=== PATIENT | male | born 1985 | race African-American/Black ===

== ENCOUNTER 2019-03-12 20:22 | Emergency (ER) | payer OTHER ==
[~2019-03-12] VITALS: Ht 175.3 cm; Wt 108.9 kg
[2019-03-12 20:22] VITALS: BP 158/97
[~2019-03-12 20:22] MED LIST: NKM
[2019-03-12] MEDS ORDERED: Ketorolac 30mg Inj IV ONE (20:30)
[2019-03-12] MEDS ORDERED: Ipratropium 0.02% Inh Soln 2.5ml UD HHN ONE (20:45)
[2019-03-12] MEDS ORDERED: Albuterol ud Inhalation HHN ONE (20:45)
--- NOTE | 2019-03-12 20:50 | NUR ---
ED Nurse Note: RT currently at bedside.
[2019-03-12] MEDS ORDERED: ALBUTEROL SULF8.5 GM INH (20:51)
--- NOTE | 2019-03-12 20:51 | Emergency Room Report ---
History of Present Illness General Chief Complaint: Chest Pain Source: Patient Present Illness HPI 34-year-old male presents with chest tightness after utilizing marijuana, patient felt a slight discomfort, no dyspnea on exertion no shortness of breath unknown alleviating factors, aggravated by smoking marijuana, no nausea no vomiting, severity was mild, symptoms lasted minutes, patient presents for evaluation. Allergies: Coded Allergies: No Known Allergies (Unverified , 11/01/14) Patient History Past Medical History: see triage record Social History: Reports: drug use - Smoking marijuana Reviewed Nursing Documentation: PMH: Agreed; PSxH: Agreed Nursing Documentation-PMH Past Medical History: No History, Except For Review of Systems All Other Systems: negative except mentioned in HPI Physical Exam Vital Signs Date Time Temp Pulse Resp B/P (MAP) Pulse Ox O2 Delivery O2 Flow Rate FiO2 03/12/19 20:19 98.2 88 18 158/97 (117) 98 Room Air General Appearance: well appearing, no apparent distress Head: normocephalic, atraumatic ENT: hearing grossly normal, normal voice Neck: full range of motion, supple Respiratory: no respiratory distress, speaking full sentences Cardiovascular #1: regular rate, rhythm, no edema, no gallop Neurologic: alert, normal gait Psychiatric: anxious Skin: no rash Medical Decision Making Diagnostic Impression: Primary Impression: Chest pain Qualified Codes: R07.9 - Chest pain, unspecified Additional Impression: Marijuana use ER Course 34-year-old male presents with chest pain after marijuana use, differential diagnosis includes ACS, smoke inhalation injury, pneumonitis Chest x-ray negative, EKG negative Patient felt better after Toradol administration and breathing treatments Counseled patient not to utilize marijuana anymore disposition home with return precautions EKG Diagnostic Results EKG Time: 20:28 EP Interpretation: NSR, rate 94, QTc 452, no acute ST elevations normal axis Rhythm Strip Diag. Results Rhythm Strip Time: 20:50 EP Interpretation: yes Rate: 88 Rhythm: NSR, no PVC's, no ectopy Chest X-Ray Diagnostic Results Chest X-Ray Diagnostic Results : Chest X-Ray Ordered: Yes # of Views/Limited/Complete: 1 View Indication: Chest Pain EP Interpretation: Yes Interpretation: no consolidation, no effusion, no pneumothorax, no acute cardiopulmonary disease Impression: No acute disease Electronically Signed by: Noe Vargas MD Last Vital Signs Date Time Temp Pulse Resp B/P (MAP) Pulse Ox O2 Delivery O2 Flow Rate FiO2 03/12/19 20:19 98.2 88 18 158/97 (117) 98 Room Air Disposition: HOME, SELF-CARE Condition: Stable Scripts Albuterol Sulfate* (ALBUTEROL SULFATE MDI*) 8.5 Gm Hfa.aer.ad 2 PUFF INH Q4H PRN for cough/wheezing, #1 EA 0 Refills Prov: Noe Vargas MD 03/12/19 Referrals: [facility]. [facility] Patient Instructions: Cannabis Use Disorder, Nonspecific Chest Pain Additional Instructions: The patient was provided with discharge instructions, notified to follow-up with a primary care doctor and or specialist in the next 24-48 hours, and to return to the ED if they have worsening of their symptoms. Please note that this report is being documented using DRAGON technology. This can lead to erroneous entry secondary to incorrect interpretation by the dictating instrument. Noe Vargas MD Mar 12, 2019 20:51
--- NOTE | 2019-03-12 20:52 | NUR ---
ED Nurse Note: Patient brought in by ambulance (RA 68) with complaints acute onset of chest pain after marijuana use. Patient appears calm with slight paranoia. No s/s of acute distress, ambulatory with steady gait, breathing even and unlabored. Will continue to monitor.
--- NOTE | 2019-03-12 20:53 | Diagnostic Imaging Report ---
EXAM: XR Chest, 1 View CLINICAL HISTORY: COUGH TECHNIQUE: Frontal view of the chest. COMPARISON: No relevant prior studies available. FINDINGS: Lungs: Reduced lung volumes. No confluent consolidation. Pleural space: Unremarkable. No pneumothorax. Heart: Accentuation of cardiac silhouette Mediastinum: Unremarkable. Bones joints: No acute fracture. IMPRESSION: Reduced lung volumes. No confluent consolidation.
--- NOTE | 2019-03-12 21:10 | NUR ---
ED Nurse Note: Patient cleared for discharge by LEIGHA. Patient is ambulatory with steady gait, A&Ox4. Ptaient tolerated breathing treatment and medication administration well. Patient ID band removed, IV removed, Patient departed with all belongings to Uber back to his friend's house.
[2019-03-12 21:13] VITALS: BP 158/97
--- NOTE | 2019-03-14 17:26 | Cardiology Report ---
APPROVED REPORT EKG Measurement Heart [id number] Normal sinus rhythm Normal ECG
== END 2019-03-12 21:13 | disposition home or self-care (01) ==
LOC: EDBD 20:22 → EMR 20:48
DX: R07.9 Chest pain, unspecified (principal); F12.10 Cannabis abuse, uncomplicated
CPT/HCPCS: 71045; 93005; 94640; 94664; 96361; 96374; J1885; Z7502; 99284

== ENCOUNTER 2019-09-23 14:22 | Emergency (ER) | payer OTHER ==
[~2019-09-23] VITALS: Ht 175.3 cm; Wt 108.9 kg
[2019-09-23 14:20] VITALS: BP 135/89
[~2019-09-23 14:22] MED LIST changes: +ALBUTEROL SULF8.5 GM INH
--- NOTE | 2019-09-23 14:24 | NUR ---
ED Nurse Note: pt walked in from his car where he is living due to sore throat since last night. pt aao x4 and ambulatory. skin clean and intact. calm and cooprative. no cardiac or pulmonary distress noted at this time.
--- NOTE | 2019-09-23 14:54 | Emergency Room Report ---
History of Present Illness General Chief Complaint: Sore Throat Source: Patient Present Illness HPI 34 YO Male presents to the ED c/o 5 in severity left sided ST progressive x 2 days. He denies fevers or chills. He reports pain is exacerbated upon swallowing and talking. Patient reports history of tonsillitis in the past. Patient denies changes in his voice. He denies swollen tender lymph nodes. He denies cough, shortness of breath, neck pain/stiffness, headache or photophobia. Patient denies body aches. No other aggravating or relieving factors at this time. Patient reports history of sleep apnea. Allergies: Coded Allergies: No Known Allergies (Unverified , 11/01/14) COVID-19 Screening Contact w/high risk pt: No Recent Travel to affected area: No Experienced COVID-19 symptoms?: No Patient History Past Medical History: see triage record Past Surgical History: none Pertinent Family History: none Immunizations: UTD Reviewed Nursing Documentation: PMH: Agreed; PSxH: Agreed Nursing Documentation-PMH Past Medical History: No Stated History Review of Systems All Other Systems: negative except mentioned in HPI Physical Exam Vital Signs Date Time Temp Pulse Resp B/P (MAP) Pulse Ox O2 Delivery O2 Flow Rate FiO2 09/23/19 14:17 97.5 90 18 135/89 (104) 99 Room Air Sp02 EP Interpretation: reviewed, normal General Appearance: no apparent distress, alert, GCS 15, non-toxic Head: normocephalic, atraumatic Eyes: bilateral eye normal inspection, bilateral eye PERRL ENT: hearing grossly normal, no angioedema, normal voice, TMs + canals normal, uvula midline, moist mucus membranes, tonsillar swelling - Left tonsil. NO exudates Neck: full range of motion, no meningismus, other - no stridor Respiratory: chest non-tender, lungs clear, normal breath sounds, no respiratory distress, no accessory muscle use, no wheezing, speaking full sentences Cardiovascular #1: regular rate, rhythm Musculoskeletal: normal range of motion, gait/station normal, non-tender Neurologic: alert, motor strength/tone normal, oriented x3, sensory intact, responsive, speech normal Psychiatric: judgement/insight normal Skin: normal color, normal inspection Lymphatic: no adenopathy Medical Decision Making PA Attestation Dr. Paige is my supervising Physician whom patient management has been discussed with. Diagnostic Impression: Primary Impression: Acute bacterial tonsillitis ER Course Pt. presents to the ED with s/sx c/w URI in the setting of a local COVID-19 Outbreak. - This PT. was triaged outside the facility in a designated staging area and placed into isolation tent. - Full PPE for airborne/droplet isolation (booties, Gown, doubled nitrile gloves, N95 Mask covered by Surgical mask w. face shield, and hair net) was donned in the designated HCP staging area prior to pt. interaction. Pt. presents to the ED c/o : sore throat, tonsillar swelling, and nasal congestion x 2 days Ddx considered but are not limited to: pharyngitis, strep, ACOUSTICS TEACHER, ludwigs angina, URI Vital signs: are WNL, pt. is afebrile H&PE are most consistent with: pharyngitis presumed strep. ORDERS: None required at this time as the diagnosis is clinical ED INTERVENTIONS: none required at this time. DISCHARGE: At this time pt. is stable for d/c to home. Will provide printed patient care instructions, and any necessary prescriptions. Care plan and follow up instructions have been discussed with the patient prior to discharge. Last Vital Signs Date Time Temp Pulse Resp B/P (MAP) Pulse Ox O2 Delivery O2 Flow Rate FiO2 09/23/19 14:25 97.5 89 18 135/89 (104) 99 Room Air Disposition: HOME, SELF-CARE Condition: Stable Scripts Ibuprofen* (MOTRIN*) 400 Mg Tablet 400 MG ORAL THREE TIMES A DAY, #30 TAB 0 Refills Prov: Kyara Keys 09/23/19 Amoxicillin/Potassium Clav 875-125* (AUGMENTIN 875-125 TABLET*) 1 Each Tablet 1 TAB ORAL TWICE A DAY for 10 Days, #20 TAB Prov: Kyara Keys 09/23/19 Patient Instructions: Sore Throat Additional Instructions: Take medications as directed. Follow up with a Primary Care Provider in 3-5 days, even if your symptoms have resolved. Return sooner to ED if new symptoms occur, or current symptoms become worse. - Please note that this Emergency Department Report was dictated using [employer] technology software, occasionally this can lead to erroneous entry secondary to interpretation by the dictation equipment. Kyara Keys Sep 23, 2019 14:54
[2019-09-23] MEDS ORDERED: IBUPROFEN400 MG ORAL (14:55)
[2019-09-23] MEDS ORDERED: AUGMENTIN 875-1 EAC1 ORAL (14:55)
[2019-09-23 14:57] VITALS: BP 134/75
--- NOTE | 2019-09-23 14:59 | NUR ---
ED Nurse Note: Pt cleared by health care Provider for discharge. DC instructions/prescription was given and explained to pt and verbalized understanding of teachings. All medical deviecs such as ID band removed. Pt is AAO x4, ambulatory and left with all personal belongings.
--- NOTE | 2019-09-23 15:09 | NUR ---
Vanda granger in EDM - 09/23/19 at 1509 by MARGARITO ED Nurse Note: back from x ray/ ct
== END 2019-09-23 15:00 | disposition home or self-care (01) ==
LOC: EDBD 14:22 → EMR 14:48
DX: J03.90 Acute tonsillitis, unspecified (principal); G47.30 Sleep apnea, unspecified
CPT/HCPCS: 99282

== ENCOUNTER 2019-11-17 19:02 | Emergency (ER) | payer OTHER ==
[~2019-11-17] VITALS: Ht 175.3 cm; Wt 113.4 kg
[~2019-11-17 19:02] MED LIST changes: +AUGMENTIN 875-1 EAC1 ORAL; +IBUPROFEN400 MG ORAL
[2019-11-17 19:19] VITALS: BP 150/105
--- NOTE | 2019-11-17 19:19 | NUR ---
ED Nurse Note: pt ambulated into ed from home CO of left upper eye bleed. Pt states he doesn't know when the bleeding began. Pt denies pain or trauma to affected area, denies visual changes. Pt states hx of smoking. Pt aao x 4, ambulatory, skin intact. VSS no ss of distress noted. Awaiting ERMD at bedside.
--- NOTE | 2019-11-17 19:27 | NUR ---
ED Nurse Note: ERMD at bedside
--- NOTE | 2019-11-17 19:33 | Emergency Room Report ---
History of Present Illness General Chief Complaint: Eye Problems Source: Patient Present Illness HPI The patient states that today he noticed blood on the upper aspect of his left eye. He denies eye pain or change in vision. He denies eye trauma. He denies headache. He has no other bruising or bleeding. He has no other complaints. Allergies: Coded Allergies: No Known Allergies (Unverified , 11/01/14) COVID-19 Screening Contact w/high risk pt: No Recent Travel to affected area: No Experienced COVID-19 symptoms?: No COVID-19 Testing performed PLC ENGINEER: No Patient History Past Medical History: none Past Surgical History: none Social History: Reports: smoking; Denies: alcohol use, drug use Reviewed Nursing Documentation: PMH: Agreed; PSxH: Agreed Nursing Documentation-PMH Past Medical History: No Stated History Review of Systems All Other Systems: negative except mentioned in HPI Physical Exam Vital Signs Date Time Temp Pulse Resp B/P (MAP) Pulse Ox O2 Delivery O2 Flow Rate FiO2 11/17/19 19:09 98.2 95 20 150/105 (120) 96 Room Air Sp02 EP Interpretation: reviewed, normal General Appearance: no apparent distress, alert, GCS 15, non-toxic Head: normocephalic, atraumatic Eyes: left eye other - subconjuctival blood upper eye under eyelid.; bilateral eye PERRL ENT: hearing grossly normal, no angioedema, normal voice Neck: normal inspection Respiratory: no respiratory distress, no retraction, no accessory muscle use, speaking full sentences Rectal: deferred Musculoskeletal: back normal, normal range of motion, gait/station normal, non- tender Neurologic: alert, motor strength/tone normal, oriented x3, sensory intact, responsive, speech normal Psychiatric: judgement/insight normal, memory normal, mood/affect normal, no suicidal/homicidal ideation Skin: no rash, normal color Medical Decision Making Diagnostic Impression: Primary Impression: Subconjunctival hematoma ER Course This patient has findings on exam consistent with a conjunctival hemorrhage. There are no other physical exam or history that would make me concerned for an emergency medical condition such as a bleeding disorder or other emergency eye condition. The patient has a classic finding of conjunctival hemorrhage which will self resolve. The patient was reassured. Patient is given return precautions and follow-up instructions. Last Vital Signs Date Time Temp Pulse Resp B/P (MAP) Pulse Ox O2 Delivery O2 Flow Rate FiO2 11/17/19 19:19 98.2 95 20 150/105 96 Room Air Status: improved Disposition: HOME, SELF-CARE Condition: Improved Patient Instructions: Subconjunctival Hemorrhage Teresa Jean DO November 17, 2019 19:33
[2019-11-17 19:35] VITALS: BP 142/94
--- NOTE | 2019-11-17 19:35 | NUR ---
ER DISCHARGE NOTE: Patient is cleared to be discharged home per ERMD, pt is aox4, on room air, with stable vital signs. pt was given dc instructions, pt was able to verbalize understanding, pt id band removed. pt is able to ambulate with steady gait. pt took all belongings.
== END 2019-11-17 19:35 | disposition home or self-care (01) ==
LOC: EMR 19:30
DX: H11.32 Conjunctival hemorrhage, left eye (principal)
CPT/HCPCS: 99282

== ENCOUNTER 2020-03-16 11:30 | Emergency (ER) | payer OTHER ==
[~2020-03-16] VITALS: Ht 175.3 cm; Wt 113.4 kg
[2020-03-16 11:45] VITALS: BP 160/100
--- NOTE | 2020-03-16 12:39 | Emergency Room Report ---
History of Present Illness General Chief Complaint: Abdominal Pain Source: Patient Present Illness HPI Patient presents to the emergency department today complaint acute onset epigastric and right upper quadrant abdominal pain. Patient states that he has had pain intermittently for the last couple of weeks. It seems to get worse whenever he eats. The pain radiates to his back and to both of his upper quadr ants. Denies any pain in the lower quadrants. Denies any nausea or vomiting. States that he is not constipated. Denies any chest pain or shortness of breath. No other complaints were noted. Symptoms noted to mild to moderate. No other modifying factors. No other associated signs and symptoms. No other complaints were noted. Allergies: Coded Allergies: No Known Allergies (Unverified , 11/01/14) COVID-19 Screening Contact w/high risk pt: No Recent Travel to affected area: No Experienced COVID-19 symptoms?: No COVID-19 Testing performed MACHINE STEMMER: No Patient History Past Medical History: none Past Surgical History: none Pertinent Family History: none Social History: Reports: alcohol use; Denies: smoking, drug use Reviewed Nursing Documentation: PMH: Agreed; PSxH: Agreed Nursing Documentation-PMH Past Medical History: No History, Except For Review of Systems All Other Systems: negative except mentioned in HPI Physical Exam Vital Signs Date Time Temp Pulse Resp B/P (MAP) Pulse Ox O2 Delivery O2 Flow Rate FiO2 03/16/20 11:35 98.2 90 18 160/100 (120) 98 Room Air Sp02 EP Interpretation: reviewed, normal General Appearance: normal inspection, well appearing, no apparent distress, alert Head: atraumatic Eyes: bilateral eye normal inspection ENT: normal ENT inspection, hearing grossly normal, normal voice Neck: normal inspection, full range of motion, supple, no bony tend Respiratory: normal inspection, lungs clear, normal breath sounds, no respiratory distress, no retraction, no wheezing Cardiovascular #1: regular rate, rhythm, no edema Gastrointestinal: normal inspection, normal bowel sounds, soft, no guarding, no hernia, tenderness - Epigastric and right upper quadrant Genitourinary: no CVA tenderness Musculoskeletal: normal inspection, back normal, normal range of motion Neurologic: alert, responsive, speech normal, normal inspection Psychiatric: normal inspection, judgement/insight normal, mood/affect normal Skin: no rash Medical Decision Making Diagnostic Impression: Primary Impression: Gastritis ER Course Patient presents to the emergency department today complaining of abdominal pain. Differential considerations include acute pancreatitis, cholecystitis, gastritis, hepatitis, appendicitis just to name a few. Patient's exam is consistent with gastritis. However other considerations include cholecystitis. Laboratory work-up was negative. Abdominal ultrasound was also normal. Given negative work-up I feel the symptoms are consistent with gastritis. We will start the patient on omeprazole. Patient is advised to follow up with primary doctor in 2-3 days and return the emergency room for any worsening symptoms and as needed. Labs Test 03/16/20 12:27 White Blood Count 8.3 K/UL (4.8-10.8) Red Blood Count 4.68 M/UL (4.70-6.10) Hemoglobin 13.2 G/DL (14.2-18.0) Hematocrit 39.8 % (42.0-52.0) Mean Corpuscular Volume 85 FL (80-99) Mean Corpuscular Hemoglobin 28.2 PG (27.0-31.0) Mean Corpuscular Hemoglobin Concent 33.1 G/DL (32.0-36.0) Red Cell Distribution Width 13.3 % (11.6-14.8) Platelet Count 333 K/UL (150-450) Mean Platelet Volume 5.4 FL (6.5-10.1) Neutrophils (%) (Auto) 62.8 % (45.0-75.0) Lymphocytes (%) (Auto) 27.2 % (20.0-45.0) Monocytes (%) (Auto) 7.5 % (1.0-10.0) Eosinophils (%) (Auto) 1.7 % (0.0-3.0) Basophils (%) (Auto) 0.7 % (0.0-2.0) Sodium Level 140 MMOL/L (136-145) Potassium Level 4.3 MMOL/L (3.5-5.1) Chloride Level 105 MMOL/L (98-107) Carbon Dioxide Level 27 MMOL/L (21-32) Anion Gap 8 mmol/L (5-15) Blood Urea Nitrogen 13 mg/dL (7-18) Creatinine 1.0 MG/DL (0.55-1.30) Estimat Glomerular Filtration Rate > 60 mL/min (>60) Glucose Level 97 MG/DL (74-106) Calcium Level 9.0 MG/DL (8.5-10.1) Total Bilirubin 0.5 MG/DL (0.2-1.0) Aspartate Amino Transf (AST/SGOT) 34 U/L (15-37) Alanine Aminotransferase (ALT/SGPT) 54 U/L (12-78) Alkaline Phosphatase 86 U/L (46-116) Total Protein 8.1 G/DL (6.4-8.2) Albumin 3.8 G/DL (3.4-5.0) Globulin 4.3 g/dL Albumin/Globulin Ratio 0.9 (1.0-2.7) Lipase 94 U/L (73-393) Last Vital Signs Date Time Temp Pulse Resp B/P (MAP) Pulse Ox O2 Delivery O2 Flow Rate FiO2 03/16/20 11:45 98.2 18 160/100 98 Room Air 03/16/20 11:45 90 Status: improved Disposition: HOME, SELF-CARE Condition: Stable Scripts Omeprazole (OMEPRAZOLE) 40 Mg Capsule.dr 40 MG ORAL DAILY for 30 Days, CAP Prov: Ranjan Blanchard MD 03/16/20 Referrals: [facility]ERR[facility] (PCP) Ranjan Blanchard MD Mar 16, 2020 12:39
[2020-03-16 12:48] LABS: BASOPHILS % (AUTO) 0.7 % (0.0-2.0); EOSINOPHILS % (AUTO) 1.7 % (0.0-3.0); HEMATOCRIT 39.8 % (42.0-52.0); HEMOGLOBIN 13.2 G/DL (14.2-18.0); LYMPHOCYTES % (AUTO) 27.2 % (20.0-45.0); MEAN CORPUSCULAR VOLUME 85 FL (80-99); MONOCYTES % (AUTO) 7.5 % (1.0-10.0); NEUTROPHILS % (AUTO) 62.8 % (45.0-75.0); PLATELET COUNT 333 K/UL (150-450); RED BLOOD COUNT 4.68 M/UL (4.70-6.10); RED CELL DISTRIBUTION WIDTH 13.3 % (11.6-14.8); WHITE BLOOD COUNT 8.3 K/UL (4.8-10.8)
[2020-03-16 13:11] LABS: ANION GAP 8 mmol/L (5-15); BLOOD UREA NITROGEN 13 mg/dL (7-18); CARBON DIOXIDE 27 MMOL/L (21-32); CHLORIDE 105 MMOL/L (98-107); POTASSIUM 4.3 MMOL/L (3.5-5.1); SODIUM 140 MMOL/L (136-145)
[2020-03-16 13:15] LABS: ALANINE AMINOTRANSFERASE 54 U/L (12-78); ALBUMIN 3.8 G/DL (3.4-5.0); ALBUMIN/GLOBULIN RATIO 0.9 (1.0-2.7); ALKALINE PHOSPHATASE 86 U/L (46-116); ASPARTATE AMINO TRANSFERASE 34 U/L (15-37); BILIRUBIN,TOTAL 0.5 MG/DL (0.2-1.0)
[2020-03-16] MEDS ORDERED: OMEPRAZOLE40 M1 ORAL (13:54)
[2020-03-16 14:00] VITALS: BP 160/100
[2020-03-16 14:05] LABS: APPEARANCE,URINE CLEAR; BILIRUBIN, URINE NEGATIVE (NEGATIVE); GLUCOSE, URINE (UA) NEGATIVE (NEGATIVE); KETONES,URINE 1+ (NEGATIVE); LEUKOCYTE ESTERASE ,URINE 1+ (NEGATIVE); NITRITE,URINE NEGATIVE (NEGATIVE); PH,URINE 5 (4.5-8.0); PROTEIN,URINE NEGATIVE (NEGATIVE); UROBILINOGEN,URINE NORMAL MG/DL (0.0-1.0)
[2020-03-16 14:06] LABS: COLOR,URINE YELLOW
--- NOTE | 2020-03-16 14:42 | Diagnostic Imaging Report ---
Indication: Abdominal pain Technique: Palma-scale and duplex images of the upper abdomen were obtained Comparison: none Findings: Gallbladder is unremarkable, without stones, wall thickening, nor pericholecystic fluid. Sonographic Germain's sign is negative. Common bile duct measures 3 mm in diameter. No intrahepatic biliary ductal dilatation. Liver demonstrates diffusely increased echogenicity, consistent with diffuse hepatocellular disease, most likely fatty change. Portal vein and hepatic veins are patent. Pancreas is unremarkable. 9.9 Left kidney measures 10.8 cm in length. Right kidney measures 10.3 cm length. Both kidneys demonstrate normal echogenicity. There is no hydronephrosis. No focal abnormality . Abdominal aorta is partially obscured by bowel gas, visualized portions are non-aneurysmal . Impression: Liver demonstrates diffusely increased echogenicity, consistent with diffuse hepatocellular disease, most likely fatty change. Negative for gallstones or dilated bile ducts Note inability to visualize portions of the abdominal aorta
== END 2020-03-16 14:03 | disposition home or self-care (01) ==
LOC: EMR 11:58
DX: K29.70 Gastritis, unspecified, without bleeding (principal)
CPT/HCPCS: 36415; 76700; 80053; 81003; 83690; 85025; Z7502; 99284

== ENCOUNTER 2020-06-06 20:33 | Emergency (ER) | payer OTHER ==
[~2020-06-06] VITALS: Ht 175.3 cm; Wt 113.4 kg
[~2020-06-06 20:33] MED LIST changes: +OMEPRAZOLE40 M1 ORAL
[2020-06-06] MEDS ORDERED: HYDROCHLOROTHIA25 MG ORAL (20:44)
[2020-06-06 20:46] VITALS: BP 176/125
--- NOTE | 2020-06-06 20:46 | NUR ---
ED Nurse Note: patient ambulated to ed co tingling sensation in toes x 30 minutes prior to arrival. requests general checkup. bp at triage 176/125. changed into gown; attached to monitor. patient ao4 with no acute distress. all safety measures met.
--- NOTE | 2020-06-06 20:50 | NUR ---
ED Nurse Note: iv access established. blood and urine collected; sent down to lab.
[2020-06-06 21:08] LABS: BASOPHILS % (AUTO) 1.4 % (0.0-2.0); EOSINOPHILS % (AUTO) 1.9 % (0.0-3.0); HEMATOCRIT 40.2 % (42.0-52.0); HEMOGLOBIN 14.2 G/DL (14.2-18.0); LYMPHOCYTES % (AUTO) 38.8 % (20.0-45.0); MEAN CORPUSCULAR VOLUME 83 FL (80-99); MONOCYTES % (AUTO) 7.3 % (1.0-10.0); NEUTROPHILS % (AUTO) 50.6 % (45.0-75.0); PLATELET COUNT 349 K/UL (150-450); RED BLOOD COUNT 4.84 M/UL (4.70-6.10); RED CELL DISTRIBUTION WIDTH 15.3 % (11.6-14.8); WHITE BLOOD COUNT 11.7 K/UL (4.8-10.8)
[2020-06-06 21:24] LABS: ANION GAP 6 mmol/L (5-15); BLOOD UREA NITROGEN 15 mg/dL (7-18); CALCIUM 8.7 MG/DL (8.5-10.1); CARBON DIOXIDE 28 MMOL/L (21-32); CHLORIDE 103 MMOL/L (98-107); CREATININE 1.3 MG/DL (0.55-1.30); POTASSIUM 3.7 MMOL/L (3.5-5.1); SODIUM 137 MMOL/L (136-145)
[2020-06-06 21:29] LABS: ALANINE AMINOTRANSFERASE 44 U/L (12-78); ALBUMIN 3.8 G/DL (3.4-5.0); ALBUMIN/GLOBULIN RATIO 0.8 (1.0-2.7); ALKALINE PHOSPHATASE 96 U/L (46-116); ASPARTATE AMINO TRANSFERASE 32 U/L (15-37); BILIRUBIN,TOTAL 0.4 MG/DL (0.2-1.0)
[2020-06-06 21:40] VITALS: BP 156/98
--- NOTE | 2020-06-06 21:40 | NUR ---
ER DISCHARGE NOTE: Patient is cleared to be discharged per ERMD, pt is aox4, on room air, with stable vital signs. pt was given dc and prescription instructions, pt was able to verbalize understanding, pt id band and iv site removed without complications. pt is able to ambulate with steady gait. pt took all belongings.
--- NOTE | 2020-06-06 22:14 | Emergency Room Report ---
History of Present Illness General Chief Complaint: Hypertension Source: Patient Present Illness HPI 35-year-old male with a history of prediabetes here with lower extremity tingling. Patient says that for the past several days he has been noticing paresthesias in his toes bilaterally as well as some lower extremity swelling intermittently. Denies fevers, chills, chest pain, palpitation, shortness of breath, back pain, abdominal pain, nausea, vomiting, diarrhea, dysuria, trauma, lower extremity swelling or pain. 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 Nursing Documentation-[facility] Past Medical History: No History, Except For Review of Systems All Other Systems: negative except mentioned in HPI Physical Exam Vital Signs Date Time Temp Pulse Resp B/P (MAP) Pulse Ox O2 Delivery O2 Flow Rate FiO2 06/06/20 20:37 98.4 99 12 176/125 (142) 94 Room Air Sp02 EP Interpretation: reviewed, normal General Appearance: no apparent distress, alert, non-toxic Head: normocephalic, atraumatic Eyes: bilateral eye normal inspection, bilateral eye PERRL ENT: hearing grossly normal, normal pharynx, no angioedema, normal voice Neck: full range of motion, supple/symm/no masses Respiratory: chest non-tender, lungs clear, normal breath sounds, speaking full sentences Cardiovascular #1: regular rate, rhythm, no edema Cardiovascular #2: 2+ carotid (R), 2+ carotid (L), 2+ radial (R), 2+ radial (L), 2+ dorsalis pedis (R), 2+ dorsalis pedis (L) Gastrointestinal: normal bowel sounds, non tender, soft, non-distended, no guarding, no rebound Rectal: deferred Genitourinary: normal inspection, no CVA tenderness Musculoskeletal: back normal, normal range of motion, gait/station normal, non- tender Neurologic: alert, motor strength/tone normal, oriented x3, sensory intact, responsive, speech normal Psychiatric: judgement/insight normal, memory normal, mood/affect normal, no suicidal/homicidal ideation Lymphatic: no adenopathy Medical Decision Making Diagnostic Impression: Primary Impression: Hypertension Additional Impression: Paresthesia ER Course Laboratory Tests Test 06/06/20 20:50 White Blood Count 11.7 K/UL (4.8-10.8) H Red Blood Count 4.84 M/UL (4.70-6.10) Hemoglobin 14.2 G/DL (14.2-18.0) Hematocrit 40.2 % (42.0-52.0) L Mean Corpuscular Volume 83 FL (80-99) Mean Corpuscular Hemoglobin 29.3 PG (27.0-31.0) Mean Corpuscular Hemoglobin Concent 35.3 G/DL (32.0-36.0) Red Cell Distribution Width 15.3 % (11.6-14.8) H Platelet Count 349 K/UL (150-450) Mean Platelet Volume 6.0 FL (6.5-10.1) L Neutrophils (%) (Auto) 50.6 % (45.0-75.0) Lymphocytes (%) (Auto) 38.8 % (20.0-45.0) Monocytes (%) (Auto) 7.3 % (1.0-10.0) Eosinophils (%) (Auto) 1.9 % (0.0-3.0) Basophils (%) (Auto) 1.4 % (0.0-2.0) Sodium Level 137 MMOL/L (136-145) Potassium Level 3.7 MMOL/L (3.5-5.1) Chloride Level 103 MMOL/L (98-107) Carbon Dioxide Level 28 MMOL/L (21-32) Anion Gap 6 mmol/L (5-15) Blood Urea Nitrogen 15 mg/dL (7-18) Creatinine 1.3 MG/DL (0.55-1.30) Estimated Glomerular Filtration Rate > 60 mL/min (>60) Glucose Level 113 MG/DL (74-106) H Calcium Level 8.7 MG/DL (8.5-10.1) Total Bilirubin 0.4 MG/DL (0.2-1.0) Aspartate Amino Transferase (AST) 32 U/L (15-37) Alanine Aminotransferase (ALT) 44 U/L (12-78) Alkaline Phosphatase 96 U/L (46-116) Total Protein 8.5 G/DL (6.4-8.2) H Albumin 3.8 G/DL (3.4-5.0) Globulin 4.7 g/dL Albumin/Globulin Ratio 0.8 (1.0-2.7) L 35-year-old male here with hypertension and lower extremity intermittent paresthesias. Patient did not have any paresthesias here in the emergency department and had normal neurologic examination without any evidence of decreased sensation whatsoever. He was noted to be hypertensive around 175/125 on arrival to the emergency department. He says that he has had blood pressure readings in this range before. He was given 10 mg of hydralazine with good resolution of his hypertension. CBC and CMP were unremarkable. He was given a prescription for hydrochlorothiazide and information to follow-up with a primary care provider. Told to come back to the emergency department for worsening symptoms. Discharged in stable condition. Last Vital Signs Date Time Temp Pulse Resp B/P (MAP) Pulse Ox O2 Delivery O2 Flow Rate FiO2 06/06/20 20:50 176/125 06/06/20 20:46 98.4 98 12 94 Room Air Disposition: HOME, SELF-CARE Condition: Stable Scripts Hydrochlorothiazide* (HYDROCHLOROTHIAZIDE*) 25 Mg Tablet 25 MG ORAL DAILY for Hypertension for 28 Days, TAB Prov: Deni Banuelos M.D. 06/06/20 Referrals: NON PHYSICIAN (PCP) [facility] Patient Instructions: Hypertension Deni Banuelos M.D. Jun 06, 2020 22:14
== END 2020-06-06 21:40 | disposition home or self-care (01) ==
LOC: EMR 20:59
DX: I10 Essential (primary) hypertension (principal); R20.2 Paresthesia of skin
CPT/HCPCS: 36415; 80053; 85025; 96374; J0360; Z7502; 99284

== ENCOUNTER 2020-06-08 00:40 | Emergency (ER) | payer OTHER ==
[~2020-06-08] VITALS: Ht 172.7 cm; Wt 99.8 kg
[~2020-06-08 00:40] MED LIST changes: +HYDROCHLOROTHIA25 MG ORAL
[2020-06-08 00:50] VITALS: BP 143/94
--- NOTE | 2020-06-08 00:50 | NUR ---
ED Nurse Note: Liliana walked into ED c/o elevated blood pressure, patient reports prior to arrival patient's systolic blood pressure was in the 170s via at home wrist blood pressure cuff. patient is alert and oriented x4, reports of tingling sensation primarily on his left foot. patient was recently seen here about 24 hours ago for the same reason. denies any dizziness or loss of vision. was given BP meds yesterday as well as prescribed. complains of 2/10 pain primarily on foot. will wait for further orders
--- NOTE | 2020-06-08 01:05 | NUR ---
ER DISCHARGE NOTE: Patient is cleared to be discharged per ERMD, pt is aox4, on room air, with stable vital signs. pt was given dc instructions, pt was able to verbalize understanding, pt id band removed without complications. pt is able to ambulate with steady gait. pt took all belongings.
--- NOTE | 2020-06-08 01:08 | Emergency Room Report ---
History of Present Illness General Chief Complaint: Hypertension Source: Patient Present Illness HPI Disclaimer: Please note that this report is being documented using DRAGON technology. This can lead to erroneous entry secondary to incorrect interpretation by the dictating instrument. HPI: 35-year-old male presents for evaluation of elevated blood pressure readings. Patient seen in emergency department on 06/06 diagnosed with hypertension and started on hydrochlorothiazide. He was also complaining of paresthesias in the legs. Patient brought home blood pressure cuff and noted systolic pressures in the 160s. Denies shortness of breath, chest pain, chest p ressure, lightheadedness, palpitations, diaphoresis or tachycardia. He reports intermittent tingling sensations of the lower extremities lasting minutes to half an hour. Denies weakness in the lower extremity, loss of color, loss of sensation. Symptoms resolved after getting up and walking around usually. Denies difficulty walking long distances or increased soreness or tingling at night. Patient works from home and sits at a computer for long periods of time. Denies trauma. Patient states he got anxious when he was diagnosed with hypertension on last ER visit and wanted to come talk to a doctor again. Denies other symptoms at this time. 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 EOMI. Resp: Normal work of breathing Skin: Intact. No abrasions, laceration or rash over the exposed skin MSK: Normal tone and bulk. Moving all extremities. No obvious deformity. Calves are symmetrical. No swelling. Nontender. Neuro: Awake and alert. Mentating appropriately. Sensation intact over the lower extremities bilaterally across all dermatomes. No saddle anesthesia. Medical Decision Making Diagnostic Impression: Primary Impression: Hypertension ER Course 35-year-old male presents for evaluation of elevated blood pressure readings at home as well as intermittent paresthesias lower extremities. Regarding hypertension, the patient's blood pressure appears to have improved. He is started hydrochlorothiazide and stated that he is looking into the DASH diet, starting to exercise again and living a healthier lifestyle in general. He is trying to follow-up with his PMD was unable to make an appointment today. He will continue trying to follow-up as an outpatient. Denies chest pain or other symptoms at this time do not believe the patient requires emergent repeat labs or imaging given his recent labs and improving blood pressure. Regarding lower extremity paresthesias. Appears to have been mostly what the patient is sitting for long periods of time and improves with walking around. His paresthesias do not appear to follow a particular nerve distribution unlikely related to prolonged sitting. Encouraged him to get up and walk around more while he is working from home. No evidence of cauda equina syndrome or other neuro deficit at this time. Discussed all this with patient and he noted reassurance. He will continue to follow-up with his PMD. Stable for outpatient follow-up. Last Vital Signs Date Time Temp Pulse Resp B/P (MAP) Pulse Ox O2 Delivery O2 Flow Rate FiO2 06/08/20 00:45 98.2 98 18 143/94 (110) 97 Room Air Disposition: HOME, SELF-CARE Condition: Stable Referrals: NON PHYSICIAN (PCP) Patient Instructions: DASH Eating Plan Additional Instructions: Please follow-up with your primary care doctor in the next 1 to 3 days to discuss this emergency department visit and for reevaluation. If you have any new or worsening symptoms please return to the emergency department for reevaluation. Please note that this report is being documented using Act[employer]ero technology. This can lead to erroneous entry secondary to incorrect interpretation by the dictating instrument. Francis Tsai MD Jun 08, 2020 01:08
[2020-06-08 01:09] VITALS: BP 140/88
== END 2020-06-08 01:05 | disposition home or self-care (01) ==
LOC: EMR 00:52
DX: I10 Essential (primary) hypertension (principal)
CPT/HCPCS: 99281

== ENCOUNTER 2020-06-11 14:33 | Emergency (ER) | payer OTHER ==
[~2020-06-11] VITALS: Ht 175.3 cm; Wt 113.4 kg
--- NOTE | 2020-06-11 14:48 | NUR ---
ED Nurse Note: Pt walked into ED w/ c/o numbness in feet. Pt states he is prediabetic. He is alert and orientedx4, ambulatroy. Pt has been seen by ERMD. Pt states he is unable to see primary doctor rift now. No wounds.
[2020-06-11 14:51] VITALS: BP 151/104
[2020-06-11] MEDS ORDERED: hydroCHLOROthiazide 25mg cap ORAL ONE (15:00)
--- NOTE | 2020-06-11 15:04 | Emergency Room Report ---
History of Present Illness General Chief Complaint: General Complaint Source: Patient Present Illness HPI 35-year-old male with recent diagnosis of hypertension here complaining of tingling sensation in both feet that started today. Patient was seen in [facility] 5 days ago was diagnosed with hypertension, start on hydrochlorothiazide. Patient reports that he did not take his hydrochlorothiazide this morning as it made him feel funny." Also patient did not have any diagnosis of diabetes 5 days ago. Denies any chest pain, shortness of breath, headache and dizziness. Reports that before coming here he had food that contain a lot of sodium as well as alcohol and reports that he drinks alcohol daily basis. Denies all drug use. 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 COVID-19 Screening: Negative COVID-19 COVID-19 Testing Source: unk Patient History Past Medical History: see triage record Past Surgical History: none Pertinent Family History: none Reviewed Nursing Documentation: PMH: Agreed; PSxH: Agreed Nursing Documentation-PMH Past Medical History: No History, Except For Review of Systems All Other Systems: negative except mentioned in HPI Physical Exam Vital Signs Date Time Temp Pulse Resp B/P (MAP) Pulse Ox O2 Delivery O2 Flow Rate FiO2 06/11/20 14:40 98.4 103 20 157/105 (122) 96 Room Air 06/11/20 14:51 99 Sp02 EP Interpretation: reviewed, abnormal - Elevated blood pressure General Appearance: no apparent distress, alert, GCS 15, non-toxic Head: normocephalic, atraumatic Eyes: bilateral eye normal inspection, bilateral eye PERRL ENT: hearing grossly normal, normal pharynx, no angioedema, normal voice Neck: full range of motion, supple/symm/no masses Respiratory: chest non-tender, lungs clear, normal breath sounds, speaking full sentences Cardiovascular #1: regular rate, rhythm, no edema Cardiovascular #2: 2+ carotid (R), 2+ carotid (L), 2+ radial (R), 2+ radial (L), 2+ dorsalis pedis (R), 2+ dorsalis pedis (L) Gastrointestinal: soft Genitourinary: no CVA tenderness Musculoskeletal: back normal, pelvis stable, gait/station normal Neurologic: alert, motor strength/tone normal, oriented x3, sensory intact, responsive, speech normal Psychiatric: judgement/insight normal, memory normal, mood/affect normal, no suicidal/homicidal ideation Skin: no rash Lymphatic: no adenopathy Medical Decision Making PA Attestation All diagnoses and treatment plans were reviewed and discussed with my supervising physician Dr. Tsai Diagnostic Impression: Primary Impression: Hypertension ER Course 35-year-old male with recent diagnosis of hypertension here complaining of tingling sensation in both feet that started today. Patient was seen in [place] ER 5 days ago was diagnosed with hypertension, start on hydrochlorothiazide. Patient reports that he did not take his hydrochlorothiazide this morning as it made him feel funny." Also patient did not have any diagnosis of diabetes 5 days ago. Denies any chest pain, shortness of breath, headache and dizziness. Reports that before coming here he had food that contain a lot of sodium as well as alcohol and reports that he drinks alcohol daily basis. Denies all drug use. Ddx considered but are not limited to: Hypertension, hypertension urgency, hypertensive emergency, diabetes Vital signs: are WNL, pt. is afebrile H&PE are most consistent with hypertension ORDERS: Advised patient on DASH diet also follow primary doctor and avoid drinking alcohol. ED INTERVENTIONS: Hydrochlorothiazide, Accu-Chek DISCHARGE: At this time pt. is stable for d/c to home. Will provide printed patient care instructions, and any necessary prescriptions. Care plan and follow up instructions have been discussed with the patient prior to discharge. Ad vised patient of the need to stop drinking alcohol at he contributes to recent blood pressure. Also explained to patient that blood work is within normal limits and sugar within normal range 5 days ago is not at this stage II have patient developed diabetic neuropathy however advised patient to follow primary doctor for hemoglobin A1c check. If worsening symptoms return to the emergency room Last Vital Signs Date Time Temp Pulse Resp B/P (MAP) Pulse Ox O2 Delivery O2 Flow Rate FiO2 06/11/20 14:51 113 21 Room Air 99 06/11/20 14:51 98.4 151/104 99 Disposition: HOME, SELF-CARE Condition: Stable Patient Instructions: Hypertension Additional Instructions: Take medication as directed, follow primary care provider, if worsening symptoms return to emergency room. Avoid drinking alcohol, avoid eating foods with high sodium. Ernie Nicole Jun 11, 2020 15:04
--- NOTE | 2020-06-11 15:18 | NUR ---
ER DISCHARGE NOTE: Patient is cleared to be discharged per ERMD, pt is aox4, on room air, with stable vital signs. pt was given dc and prescription instructions, pt was able to verbalize understanding, pt id band removed. pt is able to ambulate with steady gait. pt took all belongings. Pt educated on DASh diet, hypertension.
[2020-06-11 15:19] VITALS: BP 144/97
== END 2020-06-11 15:19 | disposition home or self-care (01) ==
LOC: EMR 15:14
DX: I10 Essential (primary) hypertension (principal); R20.2 Paresthesia of skin; Z79.899 Other long term (current) drug therapy
CPT/HCPCS: 99282

== ENCOUNTER 2020-06-11 21:30 | Emergency (ER) | payer OTHER ==
[~2020-06-11] VITALS: Ht 175.3 cm; Wt 113.4 kg
--- NOTE | 2020-06-11 21:43 | NUR ---
ED Nurse Note: PT walked in from home. PT co of right foot pain and some numbness. Walks with a steady gait. Vitals stable on RA as documetned. The foot is pink in color with good pulses. Pt can move all toes independently. 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 Pt denies trauma to foot.
[2020-06-11 21:45] VITALS: BP 145/92
--- NOTE | 2020-06-11 21:50 | Emergency Room Report ---
History of Present Illness General Chief Complaint: General Complaint Source: Patient Present Illness HPI Disclaimer: Please note that this report is being documented using MendeleyON technology. This can lead to erroneous entry secondary to incorrect interpretation by the dictating instrument. HPI: 35-year-old male presents for evaluation of tingling in his right foot. He notes intermittent pins and needle sensation over the plantar surface. Sometimes on the right foot, sometimes on the left. No exacerbating or obvious trigger factors. Denies significant pain with ambulation. Denies swelling or injury. Recently started on antihypertensive medication and believes is the cause. Seen in the emergency department multiple times for this. Denies pain. 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 EOMI. Resp: Normal work of breathing Skin: Intact. No abrasions, laceration or rash over the exposed skin MSK: Normal tone and bulk. Moving all extremities. No obvious deformity. Full range of motion at the ankle and all toes. Brisk capillary refill in all digits. 2+ PT and DP pulses Neuro: Awake and alert. Mentating appropriately. Sensation intact of the dermatomes of lower extremities bilaterally. Medical Decision Making Diagnostic Impression: Primary Impression: Paresthesia ER Course Is a 35-year-old male presenting for evaluation of intermittent paresthesias of his feet. Today was the right foot but he has been seen before for similar complaints. Recent start antihypertensive medication though I believe there is a part of anxiety. Possible claudication though he has brisk capillary refill, good pulses, no swelling and denies any pain with ambulation. May also be plantar fasciitis but no pain can be reproduced on exam. Patient is very anxious over his no diagnosis of hypertension. I do not see any evidence of DVT, vascular occlusion, infection or neuro deficit. His deficits do not follow a specific nerve distribution of little concern for central or peripheral nerve disease. Electrolytes on recent testing were within normal limits. He may follow-up with his PMD and discuss these intermittent paresthesias of his feet. Instructed to return new or worsening symptoms. Last Vital Signs Date Time Temp Pulse Resp B/P (MAP) Pulse Ox O2 Delivery O2 Flow Rate FiO2 06/11/20 21:31 98.2 107 21 149/95 (113) 98 Room Air Disposition: HOME, SELF-CARE Condition: Stable Patient Instructions: Paresthesia, Hypertension Additional Instructions: Please follow-up with your primary care doctor in the next 1 to 3 days to di scuss this emergency department visit and for reevaluation. If you have any new or worsening symptoms please return to the emergency department for reevaluation. Please note that this report is being documented using [employer] technology. This can lead to erroneous entry secondary to incorrect interpretation by the dictating instrument. Francis Tsai MD Jun 11, 2020 21:50
[2020-06-11 21:57] VITALS: BP 145/86
--- NOTE | 2020-06-11 21:57 | NUR ---
ER DISCHARGE NOTE: Patient is cleared to be discharged home per ERMD, pt is aox4, 98% on room air, with stable vital signs. pt was given dc instructions, pt was able to verbalize understanding, pt id band removed without complications. pt is able to ambulate with steady gait. pt took all belongings.
== END 2020-06-11 21:57 | disposition home or self-care (01) ==
LOC: EMR 21:47
DX: R20.2 Paresthesia of skin (principal); I10 Essential (primary) hypertension
CPT/HCPCS: 99281

== ENCOUNTER 2020-07-22 22:20 | Emergency (ER) | payer OTHER ==
[~2020-07-22] VITALS: Ht 175.3 cm; Wt 113.4 kg
--- NOTE | 2020-07-22 22:30 | NUR ---
ED Nurse Note: Patient walked in the ED complaining of tingling and burning sensation to bilat lower exts. Denies any signs and symptoms of diabetes. denies any wound. Patient also ran out of blood pressure medication,has an appointment with pcp in few days. 07/26/2020. pt is stable. BP elevated, asymptomatic.
[2020-07-22] MEDS ORDERED: NORVASC10 MG ORAL (22:50)
[2020-07-22 22:53] VITALS: BP 141/101
--- NOTE | 2020-07-22 22:53 | Emergency Room Report ---
History of Present Illness General Chief Complaint: General Complaint Source: Patient Present Illness HPI Ms. a 35-year-old male with a history of high blood pressure. He ran out of blood pressure medication. He presents with chief complaint of tingliness and numbness to his feet. This been ongoing problem for 1 to 2 months. He said he has been to the hospital 6 times for this. He worried that he may have a stroke or heart attack. He denies any fever chills but no nausea no vomiting or diarrhea. No focal deficit. Has not follow-up with his primary care doctor. He has an appointment for July 26. Allergies: Coded Allergies: No Known Allergies (Unverified , 11/01/14) COVID-19 Screening Contact w/high risk pt: No Recent Travel to affected area: No Experienced COVID-19 symptoms?: No COVID-19 Testing performed [employer]: No COVID-19 Screening: Positive COVID-19 COVID-19 Testing Source: COVID (+) test from 07/17 Patient History Past Medical History: see triage record, old chart reviewed, HTN Past Surgical History: none Pertinent Family History: none Social History: Denies: smoking Immunizations: other Reviewed Nursing Documentation: PMH: Agreed; PSxH: Agreed Nursing Documentation-PMH Hx Hypertension: Yes Review of Systems Eye: Denies: eye pain, blurred vision ENT: Denies: ear pain, nose congestion, throat swelling Respiratory: Denies: cough, shortness of breath Cardiovascular: Denies: chest pain, palpitations Gastrointestinal: Denies: abdominal pain, diarrhea, nausea, vomiting Musculoskeletal: Denies: back pain, joint pain Skin: Denies: rash Neurological: Reports: paresthesia; Denies: headache, numbness Endocrine: Denies: increased thirst, increased urine Hematologic/Lymphatic: Denies: easy bruising All Other Systems: negative except mentioned in HPI Physical Exam Vital Signs Date Time Temp Pulse Resp B/P (MAP) Pulse Ox O2 Delivery O2 Flow Rate FiO2 07/22/20 22:23 98.1 112 18 141/101 (114) 95 Room Air Vitals with high blood pressure Sp02 EP Interpretation: reviewed, normal General Appearance: well appearing, no apparent distress, alert Head: normocephalic, atraumatic Eyes: bilateral eye PERRL, bilateral eye EOMI ENT: hearing grossly normal, normal pharynx Neck: full range of motion, supple, no meningismus Respiratory: chest non-tender, lungs clear, normal breath sounds Cardiovascular #1: regular rate, rhythm, no murmur Gastrointestinal: normal bowel sounds, non tender, no mass, no organomegaly, no bruit, non-distended Musculoskeletal: back normal, normal range of motion, gait/station normal Psychiatric: mood/affect normal Medical Decision Making Diagnostic Impression: Primary Impression: Paresthesia Additional Impression: Hypertension Qualified Codes: I10 - Essential (primary) hypertension ER Course This patient presents with numbness and paresthesia to his feet. Differential includes neuropathy, anxiety, multiple sclerosis to name a few. There is no focal deficit. No evidence of TIA or CVA. No evidence of DVT, ACS or CVA. Last Vital Signs Date Time Temp Pulse Resp B/P (MAP) Pulse Ox O2 Delivery O2 Flow Rate FiO2 07/22/20 22:23 98.1 112 18 141/101 (114) 95 Room Air Status: unchanged Disposition: HOME, SELF-CARE Condition: Stable Scripts Amlodipine Besylate (Norvasc) 10 Mg Tablet 10 MG ORAL DAILY, #90 TAB Prov: Hugh Farias MD 07/22/20 Additional Instructions: Follow-up with your doctor in 7 days but return if symptoms worsen. Hugh Farias MD Jul 22, 2020 22:53
--- NOTE | 2020-07-22 23:00 | NUR ---
ER DISCHARGE NOTE: Patient is cleared to be discharged per ERMD, pt is aox4, on room air, with stable vital signs. pt was given dc and prescription instructions, pt was able to verbalize understanding. pt is able to ambulate with steady gait. pt took all belongings.
== END 2020-07-22 23:00 | disposition home or self-care (01) ==
LOC: EMR 22:45
DX: R20.2 Paresthesia of skin (principal); I10 Essential (primary) hypertension; U07.1 COVID-19
CPT/HCPCS: 99282

== ENCOUNTER 2020-08-04 23:06 | Emergency (ER) | payer OTHER ==
[~2020-08-04] VITALS: Ht 172.7 cm; Wt 113.4 kg
[~2020-08-04 23:06] MED LIST changes: +NORVASC10 MG ORAL
--- NOTE | 2020-08-04 23:43 | NUR ---
ED Nurse Note: Patient came to the ED complaining of a small laceration to left groin area from shaving.
--- NOTE | 2020-08-05 00:10 | Emergency Room Report ---
History of Present Illness General Chief Complaint: Laceration Source: Patient Present Illness HPI Disclaimer: Please note that this report is being documented using [employer] technology. This can lead to erroneous entry secondary to incorrect interpretation by the dictating instrument. HPI: 35-year-old male presents for evaluation of laceration. He was shaving his groin earlier today and caught an ingrown hair. Noted continued oozing. Does not take anticoagulants. Was drinking a small amount of alcohol prior to arrival. No other injury. Tetanus up-to-date. PMH: Hypertension PSH: Reviewed Allergies: Reviewed Social Hx: Reviewed Allergies: Coded Allergies: No Known Allergies (Unverified , 11/01/14) COVID-19 Screening Contact w/high risk pt: No Recent Travel to affected area: No Experienced COVID-19 symptoms?: No COVID-19 Testing performed [employer] MANAGER: No Nursing Documentation-PMH Hx Hypertension: Yes Review of Systems All Other Systems: negative except mentioned in HPI Physical Exam Vital Signs Date Time Temp Pulse Resp B/P (MAP) Pulse Ox O2 Delivery O2 Flow Rate FiO2 08/04/20 23:34 98.1 115 20 135/90 (105) 96 Room Air General: Awake and alert, no acute distress HEENT: NC/AT. EOMI. Resp: Normal work of breathing : Normal external genitalia. Circumcised male. 0.5 cm linear laceration superficial over the left pubis. Mild oozing. No foreign body noted. Skin: Intact. No abrasions, laceration or rash over the exposed skin MSK: Normal tone and bulk. Moving all extremities. No obvious deformity. Neuro: Awake and alert. Mentating appropriately Medical Decision Making Diagnostic Impression: Primary Impression: Superficial laceration ER Course Patient presents for superficial laceration while shaving his pubic hair. Dermabond applied with hemostasis. Sterile bandage applied. Tetanus is up-to-date. Routine wound care discussed. Follow-up as needed with PMD. Instructed to return new or worsening symptoms. Last Vital Signs Date Time Temp Pulse Resp B/P (MAP) Pulse Ox O2 Delivery O2 Flow Rate FiO2 08/04/20 23:34 98.1 115 20 135/90 (105) 96 Room Air Disposition: HOME, SELF-CARE Condition: Stable Patient Instructions: Tissue Adhesive Wound Care Additional Instructions: Please follow-up with your primary care doctor in the next 1 to 3 days to discuss this emergency department visit and for reevaluation. If you have any new or worsening symptoms please return to the emergency department for reevaluation. Please note that this report is being documented using [employer] technology. This can lead to erroneous entry secondary to incorrect interpretation by the dictating instrument. Francis Tsai MD Aug 05, 2020 00:10
--- NOTE | 2020-08-05 00:12 | NUR ---
Dermabond x2, administered by at pt's bedside.
[2020-08-05 00:23] VITALS: BP 135/90
--- NOTE | 2020-08-05 00:24 | NUR ---
ER DISCHARGE NOTE: Patient is cleared to be discharged per ERMD, pt is aox4, on room air, with stable vital signs. pt was given dc instructions, pt was able to verbalize understanding, pt id band removed . pt is able to ambulate with steady gait. pt took all belongings.
--- NOTE | 2020-08-05 00:30 | NUR ---
ED Nurse Note:Patient returned to ED stating his laceration contiues to bleed. ER MD aware, new dermabond applied with pressure dressing.
== END 2020-08-05 00:52 | disposition home or self-care (01) ==
LOC: EMR 23:45
DX: S31.119A Laceration without foreign body of abdominal wall, unspecified quadrant without penetration into peritoneal cavity, initial encounter (principal); I10 Essential (primary) hypertension; W45.8XXA Other foreign body or object entering through skin, initial encounter; Y93.89 Activity, other specified; Y92.9 Unspecified place or not applicable
CPT/HCPCS: 99281